=== PATIENT | female | born 1940 | race Two or more races ===

== ENCOUNTER 2019-12-17 09:00 | Inpatient (IN) | payer OTHER ==
[~2019-12-17] VITALS: Ht 157.5 cm; Wt 62.1 kg
[2019-12-17] MEDS ORDERED: LEVOTHYROXINE25 MCG PO (10:06)
[2019-12-17] MEDS ORDERED: ENALAPRIL MALE2.5 MG PO (10:06)
[2019-12-17] MEDS ORDERED: LIPITOR20 MG PO (10:07)
[2019-12-17] MEDS ORDERED: PRILOSEC OTC20 MG PO (10:07)
[2019-12-24] MEDS ORDERED: OMEPRAZOLE20 MG (07:46)
[2019-12-24] MEDS ORDERED: LEVOTHYROXINE75 MCG (07:46)
[2019-12-24] MEDS ORDERED: ENALAPRIL-HCTZ1 EACH (07:46)
[2019-12-24] MEDS ORDERED: ALENDRONATE SOD70 MG (07:46)
[2019-12-24] MEDS ORDERED: LATANOPROST2.5 ML (07:46)
[2019-12-24] MEDS ORDERED: ZANAFLEX2 MG (07:47)
[2019-12-24] MEDS ORDERED: VITAMIN D31250 MCG (07:47)
[2019-12-24] MEDS ORDERED: SIMVASTATIN40 MG (07:47)
[2019-12-26] MEDS ORDERED: OXYC1TAB9 PO (06:29)
[2019-12-26] MEDS ORDERED: BACTRIM DS TAB1 EACH PO (06:29)
[2019-12-26] MEDS ORDERED: XARELTO10 MG PO (06:29)
[2019-12-26] MEDS ORDERED: INTEGRA PLUS C1 EACH PO (06:29)
== END 2019-12-26 09:38 | DRG 470 ==
LOC: SURG 12-24 07:38 → O/R 12-24 07:38 → SURH 12-24 09:00 → SURG 12-24 10:52
PROVIDERS: ADMIT Orthopaedic Surgery Sports Medicine; ATTEND Orthopaedic Surgery Sports Medicine
PROC: 0SRC0J9 Replacement of Right Knee Joint with Synthetic Substitute, Cemented, Open Approach (ICD-10-PCS; principal; 2019-12-24 10:45)
DX: M17.11 Unilateral primary osteoarthritis, right knee (principal); I10 Essential (primary) hypertension; E03.9 Hypothyroidism, unspecified; Z20.828 Contact with and (suspected) exposure to other viral communicable diseases

== ENCOUNTER 2021-07-07 07:00 | Inpatient (IN) | payer OTHER ==
[~2021-07-07] VITALS: Ht 152.4 cm; Wt 57.6 kg
[~2021-07-07 07:00] MED LIST: ALENDRONATE SOD70 MG; BACTRIM DS TAB1 EACH PO; ENALAPRIL MALE2.5 MG PO; ENALAPRIL-HCTZ1 EACH; INTEGRA PLUS C1 EACH PO; LATANOPROST2.5 ML; LEVOTHYROXINE25 MCG PO; LEVOTHYROXINE75 MCG; LIPITOR20 MG PO; OMEPRAZOLE20 MG; OXYC1TAB9 PO; PRILOSEC OTC20 MG PO; SIMVASTATIN40 MG; VITAMIN D31250 MCG; XARELTO10 MG PO; ZANAFLEX2 MG
[2021-07-15] MEDS ORDERED: XARELTO10 MG PO (07:55)
[2021-07-15] MEDS ORDERED: INTEGRA PLUS C1 EACH PO (07:55)
[2021-07-15] MEDS ORDERED: BACTRIM DS TAB1 EACH PO (07:55)
[2021-07-15] MEDS ORDERED: OXYC1TAB9 PO (07:55)
== END 2021-07-15 23:55 | DRG 470 ==
LOC: SURH 07-13 07:00 → ICU-2 07-13 07:38 → SURH 07-13 10:12
PROVIDERS: ADMIT Orthopaedic Surgery Sports Medicine; ATTEND Orthopaedic Surgery Sports Medicine
PROC: 0SRD0J9 Replacement of Left Knee Joint with Synthetic Substitute, Cemented, Open Approach (ICD-10-PCS; principal; 2021-07-13 10:45)
DX: M17.12 Unilateral primary osteoarthritis, left knee (principal); I10 Essential (primary) hypertension